=== PATIENT | female | born 1980 | race Caucasian/White ===

== ENCOUNTER 2018-05-11 05:53 | Day surgery (SDC) | payer OTHER ==
[2018-05-11] MEDS ORDERED: FENTAnyl 50 MCG/ML VIAL (07:58)
[2018-05-11] MEDS ORDERED: MIDAZOLAM 1 MG/ML 2 ML INJ ×2 (07:58)
== END 2018-05-11 11:49 | disposition home or self-care (01) ==
LOC: GIL 05:53
DX: K29.30 Chronic superficial gastritis without bleeding (principal); K21.9 Gastro-esophageal reflux disease without esophagitis
CPT/HCPCS: 43239; 84703; 88305; 88312